=== PATIENT | female | born 1980 | race American Indian/Alaskan Native ===

== ENCOUNTER 2017-08-01 10:45 | Emergency (ER) | payer MEDICAID, OTHER ==
[2017-08-01 11:02] VITALS: TEMP 97.9; BMI 30.3
--- NOTE | 2017-08-01 11:13 | ED PDOC ---
Arrival/HPI - General Chief Complaint: Dizziness/Lightheaded Time Seen by Provider: 08/01/17 10:58 Historian: Patient - History of Present Illness Narrative History of Present Illness (Text): 08/01/17 11:13 This 36 yo female , Gravid, 20 weeks presents to this ED c/o nausea, generalized weakness, fatigue, BARR x 2 hours. Patient stated she woke up fine, but she later developed symptoms. Patient denies fever, sob, cp, abdominal pain , pelvic pain, vaginal bleeding, urinary symptoms, vaginal discharge, syncope, or abnormal gait. Time/Duration: Other (2 hours) Context: Home Past Medical History - Provider Review Nursing Documentation Reviewed: Yes - Infectious Disease Hx of Infectious Diseases: None - Tetanus Immunization Tetanus Immunization: Unknown - Genitourinary/Gynecological Other/Comment: ovarian cysts - Psychiatric Hx Substance Use: No - Surgical History Hx Cholecystectomy: Yes Family/Social History - Physician Review Nursing Documentation Reviewed: Yes Family/Social History: Other (noncontributory) Smoking Status: Former Smoker Hx Alcohol Use: No Hx Substance Use: No Allergies/Home Meds Allergies/Adverse Reactions: Allergies No Known Allergies Allergy (Verified 08/01/17 10:53) Review of Systems - Review of Systems Constitutional: Fatigue. absent: Weight Change, Fevers, Night Sweats Eyes: Normal ENT: Normal Respiratory: Normal. absent: SOB, Cough, Sputum, Wheezing Cardiovascular: Other (generalized weakness). absent: Chest Pain, Palpitations , Edema, Calf Pain, PÉREZ, Orthopnea Gastrointestinal: Nausea. absent: Abdominal Pain, Constipation, Vomiting, Appetite Changes, Hematochezia, Hematemesis, Anorexia, Food Intolerance Genitourinary Female: Normal. absent: Dysuria, Frequency, Hematuria, Vaginal Bleeding, Vaginal Discharge Musculoskeletal: Normal. absent: Back Pain Skin: Normal. absent: Rash, Pruritis Neurological: Headache, Dizziness. absent: Focal Weakness, Gait Changes, Speech Changes, Facial Droop, Disequilibrium, Seizure Endocrine: Normal Hemo/Lymphatic: Normal Psychiatric: Normal Physical Exam Vital Signs Temp Pulse Resp BP Pulse Ox 08/01/17 15:49 85 18 106/94 H 95 08/01/17 14:22 75 18 103/69 96 08/01/17 12:36 79 18 101/68 96 08/01/17 10:49 97.9 F 86 16 95/62 L 96 Temperature: Afebrile Blood Pressure: Normal Pulse: Regular Respiratory Rate: Normal Appearance: Positive for: Well-Appearing, Non-Toxic, Comfortable Pain Distress: None Mental Status: Positive for: Alert and Oriented X 3 - Systems Exam Head: Present: Atraumatic, Normocephalic Pupils: Present: PERRL Extroacular Muscles: Present: EOMI Conjunctiva: Present: Normal Mouth: Present: Moist Mucous Membranes Neck: Present: Normal Range of Motion Respiratory/Chest: Present: Clear to Auscultation, Good Air Exchange. No: Respiratory Distress, Accessory Muscle Use Cardiovascular: Present: Regular Rate and Rhythm, Normal S1, S2. No: Murmurs Abdomen: Present: Normal Bowel Sounds. No: Tenderness, Distention, Peritoneal Signs Back: Present: Normal Inspection Upper Extremity: Present: Normal Inspection, Normal ROM, NORMAL PULSES. No: Cyanosis, Edema Lower Extremity: Present: Normal Inspection, Normal ROM. No: Edema, CALF TENDERNESS, NORMAL PULSES Neurological: Present: GCS=15, CN II-XII Intact, Speech Normal, Motor Func Grossly Intact, Normal Sensory Function, Normal Cerebellar Funct, Gait Normal Skin: Present: Warm, Dry, Normal Color. No: Rashes Psychiatric: Present: Alert, Oriented x 3, Normal Insight, Normal Concentration Medical Decision Making ED Course and Treatment: 08/01/17 14:44 Patient who is presents to ED c/o generalized weakness, fatigue, BARR, feeling light headedness. Patient previous charts were reviewed, and she has multiple clinic visit for Hallucinating abuse. Patient denies recent illegal drug use, tobacco use, alcohol abuse, SI, HI. I told patient I was going top order Labs, UA, transvaginal ultrasound. Patient questioned the need for her to have urine test. She stated she was going to [facility] from ED. However, patient changed her mind, and she stayed in ED and agreed with test. Due to her mood, and pmh drug abuse, I also ordered UDS. 08/01/17 15:32 Patient stated feeling better. Patient wishes to be discharge home. I reviewed labs, ultrasound report with patient. She requested Multiple vitamin Re-evaluation Time: 15:33 Reassessment Condition: Re-examined, Improved - Lab Interpretations Microbiology Results: Microbiology Results 08/01/17 14:04 Urine Urine Culture - Final Escherichia Coli Lab Results: 08/01/17 11:20 08/01/17 11:20 Lab Results 08/01/17 14:04: Urine Opiates Screen Negative, Urine Methadone Screen Negative, Ur Barbiturates Screen Negative, Ur Phencyclidine Scrn Positive H, Ur Amphetamines Screen Negative, U Benzodiazepines Scrn Negative, U Oth Cocaine Metabols Negative, U Cannabinoids Screen Negative 08/01/17 14:04: Urine Color Light yellow, Urine Appearance Cloudy, Urine pH 6.5 , Ur Specific [place] 1.020, Urine Protein Negative, Urine Glucose (UA) Negative , Urine Ketones Negative, Urine Blood Moderate H, Urine Nitrate Positive H, Urine Bilirubin Negative, Urine Urobilinogen 0.2, Ur Leukocyte Esterase Trace H , Urine RBC 10 - 15, Urine WBC 1 - 3, Ur Epithelial Cells 1 - 3, Urine Bacteria Many, Urine HCG, Qual Positive 08/01/17 11:20: Beta HCG, Quant 92468.00 H 08/01/17 11:20: Sodium 134, Potassium 3.4 L, Chloride 105, Carbon Dioxide 25, Anion Gap 7 L, BUN 12, Creatinine 0.5 L, Est GFR ( Amer) > 60, Est GFR ( Non-Af Amer) > 60, Random Glucose 100, Calcium 8.7, Total Bilirubin 0.4, AST 20 , ALT 32, Alkaline Phosphatase 50, Total Protein 6.3, Albumin 3.3, Globulin 3.0 , Albumin/Globulin Ratio 1.1 08/01/17 11:20: WBC 7.8, RBC 3.27 L, Hgb 10.4 L, Hct 30.0 L, MCV 91.7, MCH 31.8 , MCHC 34.7, RDW 12.8, Plt Count 217, MPV 9.7, Gran % 76.7 H, Lymph % (Auto) 19.1 L, [place] % (Auto) 3.6, Eos % (Auto) 0.5 L, Baso % (Auto) 0.1, Gran # 5.99, Lymph # 1.5, [place] # 0.3, Eos # 0.0, Baso # 0.01 I have reviewed the lab results: Yes Interpretation: No clinic. lab abnormalty - RAD Interpretation Narrative RAD Interpretations (Text): 08/01/17 15:33 IMPRESSION: Viable twin . Gestational age 20 weeks. Estimated date of delivery Radiology Orders: 08/01/17 11:13 AGE [US] Stat - Medication Orders Current Medication Orders: Discontinued Medications Sodium Chloride (Sodium Chloride 0.9%) 1,000 mls @ 999 mls/hr IV .Q1H1M STA Stop: 08/01/17 12:23 Last Admin: 08/01/17 11:33 Dose: 999 mls/hr eMAR Start Stop Document 08/01/17 11:33 GMD (Rec: 08/01/17 11:33 [place] [facility] [id number] Intravenous Solution Start Date 08/01/17 Start Time 11:33 End Date 08/01/17 End time 12:34 Total Infusion Time 61 Sodium Chloride (Sodium Chloride 0.9%) 1,000 mls @ 999 mls/hr IV .Q1H1M STA Stop: 08/01/17 13:27 Last Admin: 08/01/17 12:27 Dose: 999 mls/hr eMAR Start Stop Document 08/01/17 12:27 GMD (Rec: 08/01/17 12:27 [place] [facility] [place] [id number][place] Intravenous Solution Start Date 08/01/17 Start Time 12:27 End Date 08/01/17 End time 13:28 Total Infusion Time 61 Sodium Chloride (Sodium Chloride 0.9%) 1,000 mls @ 999 mls/hr IV .Q1H1M STA Stop: 08/01/17 13:35 Last Admin: 08/01/17 14:02 Dose: 999 mls/hr eMAR Start Stop Document 08/01/17 14:02 GMD (Rec: 08/01/17 14:03 [place] [facility] [id number][place] Intravenous Solution Start Date 08/01/17 Start Time 14:02 End Date 08/01/17 End time 15:03 Total Infusion Time 61 Metoclopramide HCl (Reglan) 10 mg IVP STAT STA Stop: 08/01/17 11:25 Last Admin: 08/01/17 11:41 Dose: 10 mg IVP Administration Document 08/01/17 11:41 GMD (Rec: 08/01/17 11:41 [place] [facility] [id number][place] Charges for Administration # of IVP Administrations 1 Nitrofurantoin Macrocrystals (Macrobid) 100 mg PO STAT STA Stop: 08/01/17 14:58 Last Admin: 08/01/17 15:18 Dose: 100 mg Disposition/Present on Arrival - Present on Arrival Any Indicators Present on Arrival: No History of DVT/PE: No History of Uncontrolled Diabetes: No Urinary Catheter: No History of Decub. Ulcer: No History Surgical Site Infection Following: None - Disposition Have Diagnosis and Disposition been Completed?: Yes Diagnosis: Twin gestation in second trimester, Urinary tract infection affecting Disposition: HOME/ ROUTINE Disposition Time: 15:38 Patient Plan: Discharge Condition: GOOD Discharge Instructions (ExitCare): Urinary Tract Infection in (ED) Additional Instructions: Call private doctor for follow up visit in 1-2 days. Take multivitamin as instructed. Call your [employer] on Thursday for revaluation. Do not smoke, alcohol or illegal drugs. Drink plenty of fluids, food, and rest. Return to emergency if symptoms worsen. Prescriptions: Nitrofurantoin Macrocrystals [Macrobid] 100 mg PO BID #10 cap Vit #91/Fe Fum/FA/Dha [ + Dha Combo Pack] 1 each PO DAILY #1 combo..pkg Referrals: [facility] [Outside] - [facility] with [facility] [Outside] - Follow up with primary Jovany Valle MD [Primary Care Provider] - Follow up with primary Forms: [employer] ([place]), WORK NOTE
[2017-08-01] MEDS ORDERED: Sodium Chloride 0.9% 1,000 ML IV STA ×3 (11:23→12:35)
[2017-08-01 11:37] LABS: BASO # 0.01 K/mm3 (0.0-2.0); BASO % 0.1 % (0.0-3.0); EOS % 0.5 % (1.5-5.0); GRAN # 5.99 (1.4-6.5); GRAN % 76.7 % (50.0-68.0); LYMPH # 1.5 (1.2-3.4); LYMPH % 19.1 % (22.0-35.0); MEAN CELL VOLUME 91.7 fl (80.0-105.0); MEAN CORPUSCULAR HEMOGLOBIN 31.8 pg (25.0-35.0); MEAN CORPUSCULAR HGB CONC 34.7 g/dl (31.0-37.0); MEAN PLATELET VOLUME 9.7 fl (7.0-11.0); MONO # 0.3 (0.1-0.6); MONO % 3.6 % (1.0-6.0); RED CELL DISTRIBUTION WIDTH 12.8 % (11.5-14.5); WHITE BLOOD COUNT 7.8 10^3/ul (4.5-11.0)
[2017-08-01 11:47] LABS: ALB/GLOB RATIO 1.1 (1.1-1.8); ALKALINE PHOSPHATASE 50 U/L (38-126); ALT/SGPT 32 U/L (7-56); AST/SGOT 20 U/L (14-36); BILIRUBIN,TOTAL 0.4 mg/dL (0.2-1.3); BLOOD UREA NITROGEN 12 mg/dL (7-21); CALCIUM 8.7 mg/dL (8.4-10.5); CARBON DIOXIDE 25 mmol/L (21-33); CHLORIDE 105 mmol/L (98-107); GFR AFRICAN-AMERICAN > 60; GLUCOSE,RANDOM 100 mg/dL (70-110); POTASSIUM 3.4 mmol/L (3.6-5.0); SODIUM 134 mmol/L (132-148); TOTAL PROTEIN 6.3 g/dL (5.8-8.3)
[2017-08-01 12:36] VITALS: RESP 18
[2017-08-01 14:19] LABS: PH,URINE 6.5 (4.7-8.0); URINE BILIRUBIN NEGATIVE (NEGATIVE); URINE BLOOD MODERATE (NEGATIVE); URINE GLUCOSE (UA) NEGATIVE (NEGATIVE); URINE KETONE NEGATIVE (NEGATIVE); URINE LEUKOCYTE ESTERASE TRACE Leu/uL (NEGATIVE); URINE PROTEIN NEGATIVE mg/dL (<30 mg/dL); URINE UROBILINOGEN 0.2 E.U./dL (<1 E.U./dL)
[2017-08-01 14:20] LABS: URINE APPEARANCE CLOUDY (CLEAR); URINE COLOR LIGHT YELLOW (YELLOW)
[2017-08-01 14:39] LABS: URINE BACTERIA MANY (NEG)
[2017-08-01 15:50] VITALS: BP 106/94; PULSE 85; O2SAT 95
--- NOTE | 2017-08-01 16:55 | US ---
PROCEDURE: age ultrasound HISTORY: generalized weakness COMPARISON: TECHNIQUE: Transabdominal ultrasound was performed FINDINGS: There is a viable twin . Fetus letter A The placenta is anterior and clear of the os. presentation is cephalic with the head near the cervix. There is motion. The 165. BPD equals 19 weeks 3 days Abdominal circumference equals 20 weeks 3 days Head circumference equals 19 weeks Femur length equals 19 weeks 6 days Mean ultrasound age is 19 weeks 6 days. Fetus letter B Cephalad position. motion. heart rate 155 BPD equals 20 weeks Abdominal circumference equals 20 weeks 5 days Head circumference equals 19 weeks 2 days Femur length equals 19 weeks 6 days Mean ultrasound age equals 19 weeks 6 days A detailed anatomic study was not performed in this setting. The membrane the fetus is is 4 mm in thickness IMPRESSION: Viable twin . Gestational age 20 weeks. Estimated date of delivery 12/19/2017
== END 2017-08-01 16:13 | disposition home or self-care (01) ==
LOC: ED 10:45
DX: O23.42 Unspecified infection of urinary tract in pregnancy, second trimester (principal); Z3A.20 20 weeks gestation of pregnancy
CPT/HCPCS: 76815; 80053; 80324; 80345; 80346; 80349; 80353; 80358; 80361; 81001; 83992; 84702; 84703; 85025; 87086; 87181; 96361; 96374; 99285; J2765; J7040